=== PATIENT | female | born 2000 | race Caucasian/White ===

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

== ENCOUNTER 2020-05-16 07:04 | Outpatient (CLI) | payer MEDICAID | END 2020-05-16 07:05 | disposition EMS.NT | LOC: EMS 07:04 | PROVIDERS: ATTEND Surgery | DX: R56.9 Unspecified convulsions (principal) ==